=== PATIENT | male | born 1960 | race Caucasian/White ===

== ENCOUNTER → 2016-06-22 | Outpatient (CLI) | payer MEDICAID | END | disposition home or self-care (01) | LOC: RAD.S 08:52 → PTH.S 09:00 → RAD.S 09:30 | DX: C85.90 Non-Hodgkin lymphoma, unspecified, unspecified site (principal); R06.00 Dyspnea, unspecified; J43.9 Emphysema, unspecified; J98.4 Other disorders of lung ==